=== PATIENT | female | born 2000 | race Caucasian/White ===

== ENCOUNTER 2019-10-12 11:20 | Emergency (ER) | payer OTHER ==
[~2019-10-12] VITALS: Ht 154.9 cm; Wt 63.5 kg
[2019-10-12 11:37] VITALS: BP 98/56
[2019-10-12] MEDS ORDERED: ACETAMINOPHEN500 M3 ORAL (11:44)
[2019-10-12] MEDS ORDERED: LITHIUM CARBON300 MG ORAL (11:44)
[2019-10-12] MEDS ORDERED: PEPTO-BISM525 MG/15 PO (11:44)
--- NOTE | 2019-10-12 11:47 | NUR ---
ED Nurse Note: Pt from [facility] walked in due to upper abdominal pain with nausea and vomiting x 3 days. Pt started to take lithium carbonate 300mg 1x/day x 2 weeks. No reports of coughing or fever. AAOx 4, ambulatory with no active vomiting upon ED arrival.
--- NOTE | 2019-10-12 11:51 | Emergency Room Report ---
History of Present Illness General Chief Complaint: Abdominal Pain Source: Patient Present Illness HPI Patient is a 18-year-old female past medical history of depression in a psych facility who presents to the ER complaining of mild generalized headache, abdominal pain, nausea, vomiting and diarrhea for the past 4 days. Patient states that she was recently started on lithium and has never been on it before. Patient denies any blurry vision, sudden onset of headache, neck stiffness, rash or altered mental status. She denies any head trauma. Patient also complains of epigastric and periumbilical pain. She denies any vomitus in her blood or diarrhea. She denies any chest pain or shortness of breath. She denies any dysuria or hematuria. Patient states that her menstrual cycle started yesterday. 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 DEVELOPER: No COVID-19 Screening: Negative COVID-19 COVID-19 Testing Source: blood Patient History Last Menstrual Period: 10/11/19 Reviewed Nursing Documentation: PMH: Agreed; PSxH: Agreed Nursing Documentation-PMH Past Medical History: No History, Except For Hx Cardiac Problems: No Hx Hypertension: No Hx Pacemaker: No Hx Asthma: No Hx COPD: No Hx Diabetes: No Hx Cancer: No Hx Gastrointestinal Problems: No Hx Dialysis: No History Of Psychiatric Problem: Yes - depression Hx Neurological Problems: No Hx Cerebrovascular Accident: No Hx Seizures: No Review of Systems All Other Systems: negative except mentioned in HPI Physical Exam Vital Signs Date Time Temp Pulse Resp B/P (MAP) Pulse Ox O2 Delivery O2 Flow Rate FiO2 10/12/19 11:37 96.1 77 16 98/56 (70) 96 Room Air Sp02 EP Interpretation: reviewed, normal General Appearance: no apparent distress, alert, GCS 15, non-toxic Head: normocephalic, atraumatic Eyes: bilateral eye normal inspection, bilateral eye PERRL ENT: hearing grossly normal, normal pharynx, no angioedema, normal voice Neck: full range of motion, supple/symm/no masses Respiratory: chest non-tender, lungs clear, normal breath sounds, speaking full sentences Cardiovascular #1: regular rate, rhythm, no edema Gastrointestinal: soft, no guarding, no rebound, other - Epigastric and periumbilical pain Rectal: deferred Genitourinary: no CVA tenderness Musculoskeletal: normal range of motion Neurologic: concession supervisor III-XII nml as tested, oriented x3 Psychiatric: no suicidal/homicidal ideation, depressed affect Skin: no rash Lymphatic: no adenopathy Medical Decision Making Diagnostic Impression: Primary Impression: UTI (urinary tract infection) ER Course Patient's vital signs are stable. Labs thus far demonstrate UTI. Patient given Rocephin. EKG has no acute abnormalities. Pending lithium level. Signed out to pending lithium level, reevaluation and final disposition. If lithium level is normal anticipate discharge back to her facility. Laboratory Tests Test 10/12/19 11:45 10/12/19 13:15 White Blood Count 8.3 K/UL (4.8-10.8) Red Blood Count 5.34 M/UL (4.20-5.40) Hemoglobin 16.3 G/DL (12.0-16.0) H Hematocrit 49.8 % (37.0-47.0) H Mean Corpuscular Volume 93 FL (80-99) Mean Corpuscular Hemoglobin 30.5 PG (27.0-31.0) Mean Corpuscular Hemoglobin Concent 32.7 G/DL (32.0-36.0) Red Cell Distribution Width 11.0 % (11.6-14.8) L Platelet Count 335 K/UL (150-450) Mean Platelet Volume 8.9 FL (6.5-10.1) Neutrophils (%) (Auto) 63.5 % (45.0-75.0) Lymphocytes (%) (Auto) 22.5 % (20.0-45.0) Monocytes (%) (Auto) 6.9 % (1.0-10.0) Eosinophils (%) (Auto) 5.8 % (0.0-3.0) H Basophils (%) (Auto) 1.2 % (0.0-2.0) Urine Color Pending Yellow Urine Appearance Pending Slightly cloudy Urine pH Pending 5 (4.5-8.0) Urine Specific [place] Pending 1.025 (1.005-1.035) Urine Protein Pending 2+ (NEGATIVE) H Urine Glucose (UA) Pending Negative (NEGATIVE) Urine Ketones Pending 3+ (NEGATIVE) H Urine Blood Pending 2+ (NEGATIVE) H Urine Nitrite Pending Negative (NEGATIVE) Urine Bilirubin Pending Negative (NEGATIVE) Urine Urobilinogen Pending 1 MG/DL (0.0-1.0) H Urine Leukocyte Esterase Pending 3+ (NEGATIVE) H Urine HCG, Qualitative Negative (NEGATIVE) Sodium Level 142 MMOL/L (136-145) Potassium Level 4.2 MMOL/L (3.5-5.1) Chloride Level 104 MMOL/L (98-107) Carbon Dioxide Level 27 MMOL/L (21-32) Anion Gap 11 mmol/L (5-15) Blood Urea Nitrogen 12 mg/dL (7-18) Creatinine 0.9 MG/DL (0.55-1.30) Estimated Glomerular Filtration Rate > 60 mL/min (>60) Glucose Level 95 MG/DL (74-106) Calcium Level 8.7 MG/DL (8.5-10.1) Magnesium Level 2.2 MG/DL (1.8-2.4) Total Bilirubin 0.6 MG/DL (0.2-1.0) Aspartate Amino Transferase (AST) 22 U/L (15-37) Alanine Aminotransferase (ALT) 25 U/L (12-78) Alkaline Phosphatase 79 U/L (46-116) Total Protein 8.0 G/DL (6.4-8.2) Albumin 4.4 G/DL (3.4-5.0) Globulin 3.6 g/dL Albumin/Globulin Ratio 1.2 (1.0-2.7) Lipase 81 U/L (73-393) Thyroid Stimulating Hormone (TSH) Pending Free Thyroxine Pending [place] Level Pending Urine RBC 0-2 /HPF (0 - 2) Urine WBC 15-20 /HPF (0 - 2) H Urine Squamous Epithelial Cells Few /LPF (NONE/OCC) Urine Bacteria Few /HPF (NONE) Urine Opiates Screen Negative (NEGATIVE) Urine Barbiturates Screen Negative (NEGATIVE) Phencyclidine (PCP) Screen Negative (NEGATIVE) Urine Amphetamines Screen Negative (NEGATIVE) Urine Benzodiazepines Screen Negative (NEGATIVE) Urine Cocaine Screen Negative (NEGATIVE) Urine Marijuana (THC) Screen Negative (NEGATIVE) EKG Diagnostic Results EKG Time: 14:00 EP Interpretation: PEREZ May MD Rate: normal Rhythm: NSR ST Segments: no acute changes ASA given to the pt in ED: No Last Vital Signs Date Time Temp Pulse Resp B/P (MAP) Pulse Ox O2 Delivery O2 Flow Rate FiO2 10/12/19 11:37 96.1 77 16 98/56 (70) 96 Room Air Signed Out To: Dr. Marin at 1400 Sheyla May M.D. Oct 12, 2019 11:51
--- NOTE | 2019-10-12 11:58 | NUR ---
ED Nurse Note: Collected blood then sent.
--- NOTE | 2019-10-12 12:00 | NUR ---
ED Nurse Note: Collected urine then sent but lab called and they said that her urine sample is just enough for test.
[2019-10-12 12:01] LABS: BASOPHILS % (AUTO) 1.2 % (0.0-2.0); EOSINOPHILS % (AUTO) 5.8 % (0.0-3.0); HEMATOCRIT 49.8 % (37.0-47.0); HEMOGLOBIN 16.3 G/DL (12.0-16.0); LYMPHOCYTES % (AUTO) 22.5 % (20.0-45.0); MEAN CORPUSCULAR VOLUME 93 FL (80-99); MONOCYTES % (AUTO) 6.9 % (1.0-10.0); NEUTROPHILS % (AUTO) 63.5 % (45.0-75.0); PLATELET COUNT 335 K/UL (150-450); RED BLOOD COUNT 5.34 M/UL (4.20-5.40); WHITE BLOOD COUNT 8.3 K/UL (4.8-10.8)
[2019-10-12 12:02] LABS: ANION GAP 11 mmol/L (5-15); BLOOD UREA NITROGEN 12 mg/dL (7-18); CALCIUM 8.7 MG/DL (8.5-10.1); CARBON DIOXIDE 27 MMOL/L (21-32); CHLORIDE 104 MMOL/L (98-107); CREATININE 0.9 MG/DL (0.55-1.30); POTASSIUM 4.2 MMOL/L (3.5-5.1); SODIUM 142 MMOL/L (136-145)
[2019-10-12 12:08] LABS: ALANINE AMINOTRANSFERASE 25 U/L (12-78); ALBUMIN 4.4 G/DL (3.4-5.0); ALBUMIN/GLOBULIN RATIO 1.2 (1.0-2.7); ALKALINE PHOSPHATASE 79 U/L (46-116); ASPARTATE AMINO TRANSFERASE 22 U/L (15-37); BILIRUBIN,TOTAL 0.6 MG/DL (0.2-1.0)
--- NOTE | 2019-10-12 12:42 | NUR ---
ED Nurse Note: Pt still unable to provide uirne at this time.
--- NOTE | 2019-10-12 13:17 | NUR ---
ED Nurse Note: Second collection of urine sent.
--- NOTE | 2019-10-12 13:26 | Diagnostic Imaging Report ---
Indication: Abdominal pain, nausea, vomiting, diarrhea Technique: Spiral acquisitions obtained through the abdomen and pelvis. No oral contrast utilized, per emergency room physician request No IV contrast utilized, per emergency room physician request.. Multiplanar reconstructions were generated. Total dose length product 268 mGycm. CTDIvol(s) 5 mGy. Dose reduction achieved using automated exposure control Comparison: None Findings: Lack of enteric contrast limits assessment of the GI tract. The appendix is normal. No evidence of colonic diverticulosis or diverticulitis. No small bowel distention. No free or loculated intraperitoneal gas or fluid is evident. The distal esophagus, stomach, duodenum are unremarkable. Lack of IV contrast limits assessment of the solid organs. There are questionably one or more small hypoattenuating gallstones. The liver is unremarkable. No biliary ductal dilatation. The pancreas, spleen, adrenals, kidneys are unremarkable. No renal or ureteral calculi, hydronephrosis, or hydroureter. No retroperitoneal or mesenteric mass or adenopathy. No pelvic mass or adenopathy. The included lung bases are clear. The bones are unremarkable. Impression: Limited assessment of the GI tract, due to lack of enteric contrast administration No definite acute process Very questionable cholelithiasis Essentially unremarkable exam otherwise The CT scanner at [facility] is accredited by the [employer] and the scans are performed using protocols designed to limit radiation exposure to as low as reasonably achievable to attain images of sufficient resolution adequate for diagnostic evaluation.
[2019-10-12 13:28] LABS: APPEARANCE,URINE SLIGHTLY CLOUDY; BILIRUBIN, URINE NEGATIVE (NEGATIVE); GLUCOSE, URINE (UA) NEGATIVE (NEGATIVE); KETONES,URINE 3+ (NEGATIVE); LEUKOCYTE ESTERASE ,URINE 3+ (NEGATIVE); NITRITE,URINE NEGATIVE (NEGATIVE); PH,URINE 5 (4.5-8.0); PROTEIN,URINE 2+ (NEGATIVE); UROBILINOGEN,URINE 1 MG/DL (0.0-1.0)
[2019-10-12 13:32] VITALS: BP 104/63
[2019-10-12 13:34] LABS: COLOR,URINE YELLOW
[2019-10-12] MEDS ORDERED: cefTRIAXone 1 GM in NS 55 ML IVPB ONE (13:45)
--- NOTE | 2019-10-12 14:21 | Emergency Room Report ---
Physical Exam Vital Signs Date Time Temp Pulse Resp B/P (MAP) Pulse Ox O2 Delivery O2 Flow Rate FiO2 10/12/19 11:37 96.1 77 16 98/56 96 Room Air Medical Decision Making Diagnostic Impression: Primary Impression: UTI (urinary tract infection) ER Course Patient signed out to me from previous provider approximately 1400 hrs. Briefly, this a 18-year-old female recently started on lithium for depression presenting with vomiting and diarrhea. Thus far, labs are consistent with acute urinary tract infection and the patient was treated with ceftriaxone. CT scan of the abdomen returned unremarkable aside from incident no evidence of cholelithiasis without evidence of acute cholecystitis. At the time of signout we are awaiting lithium level. Unfortunately, after discussion with the lab at [facility], as this is a send out test at our facility, lithium level will not be returned today. The patient's TSH, EKG, renal function show no evidence of acute lithium toxicity otherwise. The patient's nausea and vomiting are now resolved. She states she has been taking her lithium as instructed and will follow-up with her physician tomorrow morning. She will contact the records department to obtain a lithium level to discuss with her psychiatrist. At this time she denies SI/HI, paranoid thoughts, hallucinations, changes in her mood or any acute psychiatric change from baseline. She would like to be discharged home and follow-up on an outpatient basis which I believe is appropriate. Instructed her to return to the emergency department new or worsening symptoms which she agrees to. Laboratory Tests Test 10/12/19 11:45 10/12/19 13:15 White Blood Count 8.3 K/UL (4.8-10.8) Red Blood Count 5.34 M/UL (4.20-5.40) Hemoglobin 16.3 G/DL (12.0-16.0) H Hematocrit 49.8 % (37.0-47.0) H Mean Corpuscular Volume 93 FL (80-99) Mean Corpuscular Hemoglobin 30.5 PG (27.0-31.0) Mean Corpuscular Hemoglobin Concent 32.7 G/DL (32.0-36.0) Red Cell Distribution Width 11.0 % (11.6-14.8) L Platelet Count 335 K/UL (150-450) Mean Platelet Volume 8.9 FL (6.5-10.1) Neutrophils (%) (Auto) 63.5 % (45.0-75.0) Lymphocytes (%) (Auto) 22.5 % (20.0-45.0) Monocytes (%) (Auto) 6.9 % (1.0-10.0) Eosinophils (%) (Auto) 5.8 % (0.0-3.0) H Basophils (%) (Auto) 1.2 % (0.0-2.0) Urine Color Pending Yellow Urine Appearance Pending Slightly cloudy Urine pH Pending 5 (4.5-8.0) Urine Specific [place] Pending 1.025 (1.005-1.035) Urine Protein Pending 2+ (NEGATIVE) H Urine Glucose (UA) Pending Negative (NEGATIVE) Urine Ketones Pending 3+ (NEGATIVE) H Urine Blood Pending 2+ (NEGATIVE) H Urine Nitrite Pending Negative (NEGATIVE) Urine Bilirubin Pending Negative (NEGATIVE) Urine Urobilinogen Pending 1 MG/DL (0.0-1.0) H Urine Leukocyte Esterase Pending 3+ (NEGATIVE) H Urine HCG, Qualitative Negative (NEGATIVE) Sodium Level 142 MMOL/L (136-145) Potassium Level 4.2 MMOL/L (3.5-5.1) Chloride Level 104 MMOL/L (98-107) Carbon Dioxide Level 27 MMOL/L (21-32) Anion Gap 11 mmol/L (5-15) Blood Urea Nitrogen 12 mg/dL (7-18) Creatinine 0.9 MG/DL (0.55-1.30) Estimated Glomerular Filtration Rate > 60 mL/min (>60) Glucose Level 95 MG/DL (74-106) Calcium Level 8.7 MG/DL (8.5-10.1) Magnesium Level 2.2 MG/DL (1.8-2.4) Total Bilirubin 0.6 MG/DL (0.2-1.0) Aspartate Amino Transferase (AST) 22 U/L (15-37) Alanine Aminotransferase (ALT) 25 U/L (12-78) Alkaline Phosphatase 79 U/L (46-116) Total Protein 8.0 G/DL (6.4-8.2) Albumin 4.4 G/DL (3.4-5.0) Globulin 3.6 g/dL Albumin/Globulin Ratio 1.2 (1.0-2.7) Lipase 81 U/L (73-393) Thyroid Stimulating Hormone (TSH) 1.648 uiU/mL (0.358-3.740) Free Thyroxine 1.05 NG/DL (0.76-1.46) [place] Level Pending Urine RBC 0-2 /HPF (0 - 2) Urine WBC 15-20 /HPF (0 - 2) H Urine Squamous Epithelial Cells Few /LPF (NONE/OCC) Urine Bacteria Few /HPF (NONE) Urine Opiates Screen Negative (NEGATIVE) Urine Barbiturates Screen Negative (NEGATIVE) Phencyclidine (PCP) Screen Negative (NEGATIVE) Urine Amphetamines Screen Negative (NEGATIVE) Urine Benzodiazepines Screen Negative (NEGATIVE) Urine Cocaine Screen Negative (NEGATIVE) Urine Marijuana (THC) Screen Negative (NEGATIVE) EKG Diagnostic Results EKG Time: 14:00 Rate: normal Rhythm: NSR ST Segments: no acute changes Other Impression Sinus rhythm, normal axis, normal intervals, no ST segment changes. QTc interval 456 ms. Normal T wave morphology. Rhythm Strip Diag. Results Rhythm Strip Time: 14:00 EP Interpretation: yes Rate: 69 Rhythm: NSR, no PVC's, no ectopy CT/MRI/US Diagnostic Results CT/MRI/US Diagnostic Results : Impression Impression: Limited assessment of the GI tract, due to lack of enteric contrast administration No definite acute process Very questionable cholelithiasis Essentially unremarkable exam otherwise Dictated By: Wes Hsu MD Electronically Signed By: Wes Hsu MD Signed Date/Time 10/12/19 1321 CC: Sheyla May M.D. Last Vital Signs Date Time Temp Pulse Resp B/P (MAP) Pulse Ox O2 Delivery O2 Flow Rate FiO2 10/12/19 11:47 77 16 Room Air 10/12/19 11:37 96.1 98/56 (70 96 Disposition: HOME, SELF-CARE Condition: Stable Scripts Ondansetron Odt* (ZOFRAN ODT*) 4 Mg Tab.rapdis 4 MG BC EVERY 6 HOURS PRN for Nausea & Vomiting, #10 TAB 0 Refills Prov: Fermin Marin MD 10/12/19 Cephalexin* (KEFLEX*) 500 Mg Capsule 500 MG ORAL EVERY 12 HOURS for 7 Days, #14 CAP 0 Refills Prov: Fermin Marin MD 10/12/19 Referrals: NOT CHOSEN IPA/,REFERRING (PCP) Fermin Marin MD Oct 12, 2019 14:21
[2019-10-12] MEDS ORDERED: ONDANSETRON ODT4 MG BC (14:51)
[2019-10-12] MEDS ORDERED: CEPHALEXIN500 MG ORAL (14:51)
--- NOTE | 2019-10-12 14:53 | NUR ---
ED Nurse Note: Please contact [facility] when patient is ready for discharge. Address: [address] [place] [address] TEL: [phone]; [phone] Information provided by Samreen. Addendum: 10/12/19 at 1455 by SHAYY Patient is not from [facility]. Patient is currently staying at [facility]. JESSICA Mooney made aware.
[2019-10-12 15:35] VITALS: BP 107/62
[2019-10-12 16:29] VITALS: BP 118/74
--- NOTE | 2019-10-12 16:29 | NUR ---
ER DISCHARGE NOTE: Patient is cleared to be discharged per ERMD, pt is aox4, on room air, with stable vital signs. pt was given dc and prescription instructions, pt was able to verbalize understanding, pt id band and iv site removed without complications. pt is able to ambulate with steady gait. pt took all belongings and left with [facility].
--- NOTE | 2019-10-12 16:33 | NUR ---
ED Nurse Note: SPOKE WITH DALIA FROM [facility]. PER DALIA WILL SEND SOMEONE TO QUALITY AUDIT REPRESENTATIVE THE PT.
== END 2019-10-12 16:29 | disposition home or self-care (01) ==
LOC: EMR 11:52
DX: N39.0 Urinary tract infection, site not specified (principal); Z91.018 Allergy to other foods; F32.9 Major depressive disorder, single episode, unspecified
CPT/HCPCS: 36415; 74176; 80053; 80178; 80307; 81003; 81025; 83690; 83735; 84439; 84443; 85025; 87086; 93005; 96361; 96365; 96375; 99284; J0696; J2405; J7030; S0028

== ENCOUNTER 2019-10-16 15:05 | Emergency (ER) | payer OTHER ==
[~2019-10-16] VITALS: Ht 154.9 cm; Wt 65.8 kg
[~2019-10-16 15:05] MED LIST: ACETAMINOPHEN500 M3 ORAL; CEPHALEXIN500 MG ORAL; LITHIUM CARBON300 MG ORAL; ONDANSETRON ODT4 MG BC; PEPTO-BISM525 MG/15 PO
[2019-10-16 15:20] VITALS: BP 111/74
--- NOTE | 2019-10-16 15:20 | NUR ---
ED Nurse Note: Patient walked into ED from home c/o abdominal pain, n/v x 1 week. Denies diarrhea, recent travel. Patient AxO x 4, bed in lowest position.
--- NOTE | 2019-10-16 15:23 | NUR ---
ED Nurse Note: Dr. Castillo at bedside.
--- NOTE | 2019-10-16 15:40 | NUR ---
ED Nurse Note: 20g IV started in left wrist.
--- NOTE | 2019-10-16 15:41 | Emergency Room Report ---
History of Present Illness General Chief Complaint: Abdominal Pain Source: Patient Present Illness HPI The patient has had suprapubic pain for 1 week. Her menstruation stopped the day before the pain began. She was seen here and UTI was diagnosed. She has been taking antibiotics but the pain is persisted. She does not believe she is at this time. She denies any vaginal discharge. She denies fevers or chills. She has had a slight amount of back pain but the pain is mainly suprapubic and constant. She rates the pain 7-8 out of 10 and aching pressure. She is taken Tylenol and that is helped slightly. The last dose was a couple of hours before presenting to the emergency department. She denies dysuria. She was seen here October 11 for nausea vomiting and diarrhea. [place] toxicity was ruled out. She was treated with Rocephin and Keflex. She is continuing to take Keflex at this time. Someone suggested that she might have gallstones and that this might be the problem. She has been scratching bug bites on her legs. No sore throat, chest pain, palpitations, shortness of breath, joint pain, depression, anxiety, visual changes, dizziness, headache. 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: No Patient History Past Medical History: see triage record Social History: Denies: smoking Social History Narrative In a psychiatric facility Last Menstrual Period: 10/07/19 Now: No Reviewed Nursing Documentation: PMH: Agreed; PSxH: Agreed Nursing Documentation-PMH Past Medical History: No History, Except For Hx Cardiac Problems: No Hx Hypertension: No Hx Pacemaker: No Hx Asthma: Yes Hx COPD: No Hx Diabetes: No Hx Cancer: No Hx Gastrointestinal Problems: No Hx Dialysis: No History Of Psychiatric Problem: Yes - depression, anxiety Hx Neurological Problems: No Hx Cerebrovascular Accident: No Hx Seizures: No Review of Systems All Other Systems: negative except mentioned in HPI Physical Exam Vital Signs Date Time Temp Pulse Resp B/P (MAP) Pulse Ox O2 Delivery O2 Flow Rate FiO2 10/16/19 15:11 97.9 87 17 111/74 (86) 99 Room Air Sp02 EP Interpretation: reviewed, normal General Appearance: well appearing, no apparent distress, GCS 15, non-toxic Head: normocephalic Eyes: bilateral eye normal inspection, bilateral eye PERRL, bilateral eye EOMI ENT: moist mucus membranes Neck: supple Respiratory: lungs clear, normal breath sounds Cardiovascular #1: regular rate, rhythm Cardiovascular #2: 2+ radial (R) Gastrointestinal: soft, non-distended, no guarding, no rebound, tenderness - Suprapubic Genitourinary: no CVA tenderness Musculoskeletal: back normal, normal range of motion, gait/station normal Neurologic: alert, oriented x3, grossly normal Psychiatric: mood/affect normal Skin: warm/dry, other - Excoriations lower extremities Medical Decision Making Diagnostic Impression: Primary Impression: Suprapubic abdominal pain Additional Impression: UTI (urinary tract infection) Qualified Codes: N39.0 - Urinary tract infection, site not specified ER Course Patient being treated for UTI presenting with suprapubic pain. Differential includes partially treated urinary tract infection, ovarian cyst, PID, ectopic amongst others. She is afebrile but she is taken Tylenol and based on her exam PID is less likely. Patient evaluated with labs and ultrasound. Patient treated with IV hydration and Toradol. History and physical exam inconsistent with gallbladder disease. Normal white count. Continue pyuria. Ultrasound as reported below. Patient improved with treatment. Discussed results with patient. Discussed outpatient observation and treatment. Patient advised to return if symptoms worsen. Patient stable for outpatient observation and treatment. Laboratory Tests Test 10/16/19 16:03 10/16/19 16:05 White Blood Count 9.0 K/UL (4.8-10.8) Red Blood Count 4.90 M/UL (4.20-5.40) Hemoglobin 15.2 G/DL (12.0-16.0) Hematocrit 44.6 % (37.0-47.0) Mean Corpuscular Volume 91 FL (80-99) Mean Corpuscular Hemoglobin 31.0 PG (27.0-31.0) Mean Corpuscular Hemoglobin Concent 34.1 G/DL (32.0-36.0) Red Cell Distribution Width 10.8 % (11.6-14.8) L Platelet Count 311 K/UL (150-450) Mean Platelet Volume 8.7 FL (6.5-10.1) Neutrophils (%) (Auto) 59.0 % (45.0-75.0) Lymphocytes (%) (Auto) 23.6 % (20.0-45.0) Monocytes (%) (Auto) 7.7 % (1.0-10.0) Eosinophils (%) (Auto) 7.9 % (0.0-3.0) H Basophils (%) (Auto) 1.7 % (0.0-2.0) Prothrombin Time 11.0 SEC (9.30-11.50) Prothrombin Time INR 1.0 (0.9-1.1) Activated Partial Thromboplast Time 28 SEC (23-33) Sodium Level 141 MMOL/L (136-145) Potassium Level 4.2 MMOL/L (3.5-5.1) Chloride Level 104 MMOL/L (98-107) Carbon Dioxide Level 26 MMOL/L (21-32) Anion Gap 11 mmol/L (5-15) Blood Urea Nitrogen 11 mg/dL (7-18) Creatinine 0.9 MG/DL (0.55-1.30) Estimated Glomerular Filtration Rate > 60 mL/min (>60) Glucose Level 98 MG/DL (74-106) Calcium Level 8.8 MG/DL (8.5-10.1) Total Bilirubin 0.3 MG/DL (0.2-1.0) Aspartate Amino Transferase (AST) 18 U/L (15-37) Alanine Aminotransferase (ALT) 14 U/L (12-78) Alkaline Phosphatase 72 U/L (46-116) Total Protein 7.3 G/DL (6.4-8.2) Albumin 4.0 G/DL (3.4-5.0) Globulin 3.3 g/dL Albumin/Globulin Ratio 1.2 (1.0-2.7) Lipase 90 U/L (73-393) Human Chorionic Gonadotropin, Qual Negative (NEGATIVE) Urine Color Yellow Urine Appearance Slightly cloudy Urine pH 6 (4.5-8.0) Urine Specific [place] 1.020 (1.005-1.035) Urine Protein Negative (NEGATIVE) Urine Glucose (UA) Negative (NEGATIVE) Urine Ketones 1+ (NEGATIVE) H Urine Blood Negative (NEGATIVE) Urine Nitrite Negative (NEGATIVE) Urine Bilirubin Negative (NEGATIVE) Urine Urobilinogen Normal MG/DL (0.0-1.0) Urine Leukocyte Esterase 3+ (NEGATIVE) H Urine RBC 0-2 /HPF (0 - 2) Urine WBC 5-10 /HPF (0 - 2) H Urine Squamous Epithelial Cells Many /LPF (NONE/OCC) H Urine Bacteria Few /HPF (NONE) CT/MRI/US Diagnostic Results CT/MRI/US Diagnostic Results : Imaging Test Ordered: Ultrasound pelvic Impression IMPRESSION: No acute findings in the pelvis. Thickening of the urinary bladder may be due to underdistention. Last Vital Signs Date Time Temp Pulse Resp B/P (MAP) Pulse Ox O2 Delivery O2 Flow Rate FiO2 10/16/19 17:42 97.8 86 19 115/72 100 Room Air Status: improved Disposition: HOME, SELF-CARE Condition: Improved Scripts Phenazopyridine Hcl* (PYRIDIUM*) 200 Mg Tablet 200 MG ORAL THREE TIMES A DAY PRN for painful urination, #6 TAB 0 Refills Prov: Derrell Castillo MD 10/16/19 Ibuprofen* (MOTRIN*) 600 Mg Tablet 600 MG ORAL Q8H PRN for FOR PAIN, #20 TAB 0 Refills Prov: Derrell Castillo MD 10/16/19 Derrell Castillo MD Oct 16, 2019 15:41
[2019-10-16] MEDS ORDERED: Ketorolac 30mg Inj IV ONE (15:45)
--- NOTE | 2019-10-16 15:45 | NUR ---
ED Nurse Note: US at bedside
--- NOTE | 2019-10-16 16:05 | NUR ---
ED Nurse Note: Urine specimien sent to lab
[2019-10-16 16:14] LABS: APPEARANCE,URINE SLIGHTLY CLOUDY; BILIRUBIN, URINE NEGATIVE (NEGATIVE); GLUCOSE, URINE (UA) NEGATIVE (NEGATIVE); KETONES,URINE 1+ (NEGATIVE); LEUKOCYTE ESTERASE ,URINE 3+ (NEGATIVE); NITRITE,URINE NEGATIVE (NEGATIVE); PH,URINE 6 (4.5-8.0); PROTEIN,URINE NEGATIVE (NEGATIVE); UROBILINOGEN,URINE NORMAL MG/DL (0.0-1.0)
[2019-10-16 16:15] LABS: COLOR,URINE YELLOW
[2019-10-16 16:16] LABS: BASOPHILS % (AUTO) 1.7 % (0.0-2.0); EOSINOPHILS % (AUTO) 7.9 % (0.0-3.0); HEMATOCRIT 44.6 % (37.0-47.0); HEMOGLOBIN 15.2 G/DL (12.0-16.0); LYMPHOCYTES % (AUTO) 23.6 % (20.0-45.0); MEAN CORPUSCULAR VOLUME 91 FL (80-99); MONOCYTES % (AUTO) 7.7 % (1.0-10.0); PLATELET COUNT 311 K/UL (150-450); RED CELL DISTRIBUTION WIDTH 10.8 % (11.6-14.8)
[2019-10-16 16:27] LABS: ANION GAP 11 mmol/L (5-15); BLOOD UREA NITROGEN 11 mg/dL (7-18); CALCIUM 8.8 MG/DL (8.5-10.1); CARBON DIOXIDE 26 MMOL/L (21-32); CHLORIDE 104 MMOL/L (98-107); CREATININE 0.9 MG/DL (0.55-1.30); POTASSIUM 4.2 MMOL/L (3.5-5.1); SODIUM 141 MMOL/L (136-145)
[2019-10-16 16:33] LABS: ALANINE AMINOTRANSFERASE 14 U/L (12-78); ALBUMIN/GLOBULIN RATIO 1.2 (1.0-2.7); ALKALINE PHOSPHATASE 72 U/L (46-116); ASPARTATE AMINO TRANSFERASE 18 U/L (15-37); BILIRUBIN,TOTAL 0.3 MG/DL (0.2-1.0)
--- NOTE | 2019-10-16 16:57 | Diagnostic Imaging Report ---
EXAM: US Pelvis Transabdominal and Transvaginal, Complete and US Duplex Arterial/Venous of the Pelvis, Complete CLINICAL HISTORY: ABD PAIN TECHNIQUE: Real-time complete transabdominal and transvaginal pelvic ultrasound with image documentation. Transvaginal imaging was used for better evaluation of the endometrium and adnexa. Real-time duplex ultrasound scan of the arterial and venous flow of the pelvis with color Doppler flow and spectral waveform analysis. COMPARISON: CT abdomen and pelvis 10/12/19 FINDINGS: Uterus/cervix: Uterus measures 8.45 x 3.24 x 4.52 cm. Endometrial stripe thickness within normal limits, 0.9 mm. No myometrial mass. Right ovary: Right ovary measures 2.60 x 1.77 x 3.08 cm. No torsion. Left ovary: Left ovary measures 2.85 x 1.67 x 2.43 cm. No torsion. Free fluid: No free fluid. Bladder: Thickening of the urinary bladder may be due to underdistention. IMPRESSION: No acute findings in the pelvis. Thickening of the urinary bladder may be due to underdistention.
[2019-10-16] MEDS ORDERED: IBUPROFEN600 M1 ORAL (17:34)
[2019-10-16] MEDS ORDERED: PHENAZOPYRIDIN200 MG ORAL (17:34)
[2019-10-16 17:42] VITALS: BP 115/72
--- NOTE | 2019-10-16 17:42 | NUR ---
ER DISCHARGE NOTE: Patient is cleared to be discharged per ERMD, pt is aox4, on room air, with stable vital signs. pt was given dc and prescription instructions, pt was able to verbalize understanding, pt id band and iv site removed without complications. pt is able to ambulate with steady gait. pt took all belongings.
== END 2019-10-16 17:42 | disposition home or self-care (01) ==
LOC: EMR 15:46
DX: N39.0 Urinary tract infection, site not specified (principal); R10.9 Unspecified abdominal pain; F32.9 Major depressive disorder, single episode, unspecified; F41.9 Anxiety disorder, unspecified
CPT/HCPCS: 36415; 76830; 76856; 80053; 81003; 83690; 84703; 85025; 85610; 85730; 96361; 96374; 99284; J1885; J7030